=== PATIENT | female | born 1995 | race Caucasian/White ===

== ENCOUNTER 2016-10-31 19:34 | Emergency (ER) | payer OTHER ==
[~2016-10-31] VITALS: Ht 170.2 cm; Wt 61.0 kg
[2016-10-31] MEDS ORDERED: ED- HYDROcodone/ACETAMINOPHEN 5MG/325MG (NORCO) 6 TABLETS/BTL PO ONE (21:55)
[2016-10-31] MEDS ORDERED: ED- AMOXICILLIN 500 MG (POLYMOX) 6 CAPSULES/BTL PO ONE (21:55)
[2016-10-31 22:12] VITALS: BP 127/74
== END 2016-10-31 22:13 | disposition home or self-care (01) ==
LOC: ED 19:35
DX: B08.5 Enteroviral vesicular pharyngitis (principal); R50.81 Fever presenting with conditions classified elsewhere
CPT/HCPCS: 99283